=== PATIENT | male | born 1930 | race Caucasian/White ===

== ENCOUNTER 2018-04-03 12:28 | Observation (INO) | payer OTHER ==
[~2018-04-03] VITALS: Ht 160 cm; Wt 109.6 kg
[~2018-04-03 12:28] MED LIST: ADVAIR 250/501 DISK IH; ASPIRIN325 MG PO; ASTELIN137 MCG/0. BOTH NARES; AZELASTINE137 MCG/0. BOTH NARES; Aspirin PO; CATAPRES0.1 MG PO; CEFTIN500 MG PO; CIALIS5 MG PO; CLONIDINE HCL0.1 MG PO; CLOPIDOGREL75 MG PO; Claritin,Alavart PO; DAILY VALUE1 EACH PO; FERROUS SULFAT325 MG PO; FLEXERIL10 MG PO; FLOMAX0.4 M1 PO; FLOMAX0.4 MG PO; FLONASE16 G1 BOTH NARES; FLUTICASONE PRO16 GM NS; Flagyl PO; Flexeril PO; Flonase BOTH NARES; GABAPENTIN300 MG PO; GABAPENTIN600 MG PO; Garlic PO; IRON; LASIX20 MG PO; LIDOCAINE700 MG TD; LIDODERM 5% P1 PATCH PO; LIDODERM 5% P1 PATCH TD; LISINOPRIL40 MG PO; LO-DOSE ASPIRIN81 M1 PO; LOTRIMIN ULTRA12 GM TP; MELOXICAM15 MG PO; METOPROLOL SUC100 MG PO; METOPROLOL SUCC50 MG PO; MOBIC7.5 MG PO; NEURONTIN300 MG PO; NEXIUM20 MG PO; NEXIUM40 MG PO; NITROGLYCERIN0.4 MG SL; NITROSTAT,NITR0.4 M1 SL; NITROSTAT0.4 MG SL; NORCO 5/3251 TABLET PO; NORVASC2.5 MG PO; ONE DAILY FOR1 EAC2 PO; PRAVACHOL40 MG PO; PRAVASTATIN SOD40 MG PO; PREDNISONE10 MG PO; PROTONIX40 MG PO; PROVENTIL2.5 MG/3 M IH; Phenergan PO; SIMVASTATIN40 M1 PO; SPIRIVA RESPIMAT4 GM IH; Slow Fe PO; THERAGRAN1 TABLET PO; TOPROL XL50 MG PO; VENTOLIN HFA18 GM IH; VICODIN 5-3001 EACH PO; VICODIN,LORT1 TABLET PO; XYZAL5 MG PO; ZESTRIL,PRINIVI40 MG PO; Zocor PO
[2018-04-03 13:31] LABS: BASOPHIL (%) 1.3 % (0-1); BASOPHIL COUNT 0.1 K/uL (0-0.1); EOSINOPHIL COUNT 0.1 K/uL (0-0.3); HEMOGLOBIN 14.3 G/DL (12.5-16.6); IMMATURE GRANULOCYTE (%) 0.4 % (0.0-0.7); LYMPHOCYTE (%) 29.6 % (15-42); MCH 30.7 PG (29.0-34.0); MCHC 32.5 G/DL (30.0-36.0); MCV 94.4 FL (86-99); MONOCYTE (%) 13.3 % (3-12); MONOCYTE COUNT 0.9 K/uL (0-0.8); NEUTROPHIL (%) 54.4 % (45-76); NEUTROPHIL COUNT 3.7 K/uL (1.8-6.4); PLATELET COUNT 276 K/uL (156-360); RBC DIS.WIDTH-CV 14.2 % (11.8-14.6); RBC DIS.WIDTH-SD 49.3 % (39-53); RED BLOOD COUNT 4.66 M/uL (4.00-5.50); WHITE BLOOD COUNT 6.8 K/uL (4.1-10.2)
[2018-04-03 13:44] LABS: INTER. NORMALIZED RATIO 1.1
[2018-04-03 13:47] LABS: PTT 33.2 SEC (25-37)
[2018-04-03 13:49] LABS: CHLORIDE 108 mEq/L (99-109); POTASSIUM 4.7 mEq/L (3.7-5.4); SODIUM 142 mEq/L (136-147)
[2018-04-03 13:51] LABS: GLUCOSE 107 mg/dL (70-99)
[2018-04-03 13:55] LABS: GFR ESTIMATE (CALCULATED) > 59 mL/min/ (58.99-99999)
[2018-04-03 13:56] LABS: UREA NITROGEN (BUN) 13 mg/dL (9-23)
[2018-04-03 13:57] LABS: CREATINE KINASE 53 IU/L (1-294); TOTAL CK 53 IU/L (1-294)
[2018-04-03 14:02] LABS: TROP-I INTERPRETATION NEGATIVE; TROPONIN-I < 0.01 ng/mL (0.0-0.30)
[2018-04-03 14:03] LABS: CK-MB 1.2 ng/mL (0.0-4.9); CKMB RELATIVE INDEX 2.3 (0.0-3.9)
[2018-04-03] MEDS ORDERED: POTASSIUM CHLO20 ME2 PO (17:12)
[2018-04-03] MEDS ORDERED: TYLENOL REGULA325 MG PO (17:13)
[2018-04-03] MEDS ORDERED: OCUVITE TABLET1 EACH PO (17:14)
[2018-04-03] MEDS ORDERED: FUROSEMIDE20 MG PO (17:17)
[2018-04-03 18:52] LABS: HEMATOCRIT 42.3 % (38.0-50.0); HEMOGLOBIN 13.8 G/DL (12.5-16.6); MCH 30.5 PG (29.0-34.0); MCHC 32.6 G/DL (30.0-36.0); MCV 93.6 FL (86-99); PLATELET COUNT 285 K/uL (156-360); RED BLOOD COUNT 4.52 M/uL (4.00-5.50); WHITE BLOOD COUNT 8.4 K/uL (4.1-10.2)
[2018-04-03 19:05] LABS: ALBUMIN 3.5 g/dL (3.2-4.8); CHLORIDE 107 mEq/L (99-109); SODIUM 139 mEq/L (136-147)
[2018-04-03 19:07] LABS: GLUCOSE 111 mg/dL (70-99); TOTAL PROTEIN 7.2 g/dL (6.4-8.3)
[2018-04-03 19:09] LABS: TOTAL BILIRUBIN 0.5 mg/dL (0.0-1.0)
[2018-04-03 19:11] LABS: ALKALINE PHOSPHATASE 153 IU/L (3-129); GFR ESTIMATE (CALCULATED) > 59 mL/min/ (58.99-99999)
[2018-04-03 19:12] LABS: UREA NITROGEN (BUN) 15 mg/dL (9-23)
[2018-04-03 19:13] LABS: AST (GOT) 43 IU/L (2-34)
[2018-04-03 19:14] LABS: ALT (GPT) 19 IU/L (3-49)
[2018-04-03 19:36] VITALS: BP 155/74
[2018-04-03 19:49] LABS: HDL CHOLESTEROL 37 MG/DL (Desirable>=40); LDL CHOLESTEROL 76 mg/dL (Desirable<100); NON-HDL CHOLESTEROL 95 mg/dL (Desirable<160); TOTAL CHOLESTEROL 132 mg/dL (Desirable<200); TRIGLYCERIDES 94 MG/DL (Normal: <150)
[2018-04-04] VITALS: BP 112/56
[2018-04-04 04:00] VITALS: BP 115/55
[2018-04-04 08:09] VITALS: BP 137/90
[2018-04-04 10:39] LABS: HEMOGLOBIN A1c (GLYCOHEMOGLOB) 6.1 % (Below 5.7)
[2018-04-04 11:56] VITALS: BP 163/77
[2018-04-04 19:26] VITALS: BP 125/57
[2018-04-04 23:47] VITALS: BP 125/62
[2018-04-05 04:03] VITALS: BP 113/54
[2018-04-05 07:37] VITALS: BP 129/61
[2018-04-05 09:40] VITALS: BP 128/61
[2018-04-05 09:42] VITALS: BP 128/59
[2018-04-05 09:45] VITALS: BP 110/60
[2018-04-05 12:29] LABS: APPEARANCE CLEAR ((CLEAR)); BILIRUBIN NEGATIVE; BLOOD NEGATIVE; COLOR YELLOW ((YELLOW)); GLUCOSE (STRIP) NEGATIVE; KETONES NEGATIVE; LEUKOCYTES NEGATIVE; NITRITE NEGATIVE; PROTEIN (STRIP) NEGATIVE; SPECIFIC GRAVITY 1.012 (1.000-1.030); UCUL ADDED? NO
[2018-04-05] MEDS ORDERED: DOXYCYCLINE HY100 M3 PO (13:01)
[2018-04-05] MEDS ORDERED: LORATADINE10 M2 PO (13:01)
[2018-04-05] MEDS ORDERED: Salonpas 4% Patch TD (13:01)
== END 2018-04-05 15:02 | disposition home or self-care (01) ==
LOC: EME 12:28 → EDOF 17:07 → 4SOUTH 17:07 → ENRESERV 17:14 → 4SOUTH 19:16 → ENPENDDIS 04-05 14:18 → 4SOUTH 04-05 15:02
PROVIDERS: Emergency Medicine; Hospitalist
DX: R42 Dizziness and giddiness (principal); M48.062 Spinal stenosis, lumbar region with neurogenic claudication; M47.816 Spondylosis without myelopathy or radiculopathy, lumbar region; M51.36 Other intervertebral disc degeneration, lumbar region; M48.04 Spinal stenosis, thoracic region; R26.89 Other abnormalities of gait and mobility; Z98.1 Arthrodesis status; M41.9 Scoliosis, unspecified; J44.9 Chronic obstructive pulmonary disease, unspecified; I25.10 Atherosclerotic heart disease of native coronary artery without angina pectoris; J01.90 Acute sinusitis, unspecified; N40.0 Benign prostatic hyperplasia without lower urinary tract symptoms; I10 Essential (primary) hypertension; I25.2 Old myocardial infarction; Z87.891 Personal history of nicotine dependence; Z88.0 Allergy status to penicillin; Z88.8 Allergy status to other drugs, medicaments and biological substances
CPT/HCPCS: 70450; 70551; 71045; 72131; 72148; 80048; 80053; 80061; 81003; 82550; 82553; 83036; 83880; 84484; 85025; 85027; 85610; 85730; 93005; 94640; 94640 76; 99202; 99281; 99285; G0378; G8978 GP CI; G8978 GP CM; G8979 GP CM; G8980 GP CI; G8987 GO CM; G8988 GO CK; G8989 GO CM; J3010